=== PATIENT | male | born 1965 | race Caucasian/White ===

== ENCOUNTER 2021-03-09 11:08 | Emergency (ER) | payer MEDICARE, OTHER ==
[2021-03-09 12:07] LABS: HEMOGLOBIN 17.2 gm/dl (14.0-17.5); RED BLOOD COUNT 5.21 M/UL (4.20-5.50); WHITE BLOOD COUNT 15.5 K/UL (4.5-11.0)
[2021-03-09 12:32] LABS: BUN/CREATININE RATIO 16 (0-10)
[2021-03-09] MEDS ORDERED: VIBRAMYCIN 100100 MG PO ×2 (13:49)
== END 2021-03-09 13:57 | disposition home or self-care (01) ==
LOC: ER1 11:08
PROVIDERS: Emergency Medicine
DX: J44.0 Chronic obstructive pulmonary disease with (acute) lower respiratory infection (principal); J18.9 Pneumonia, unspecified organism; I11.9 Hypertensive heart disease without heart failure; F17.210 Nicotine dependence, cigarettes, uncomplicated; Z20.822 Contact with and (suspected) exposure to COVID-19
CPT/HCPCS: 0241U; 71045; 80053; 82550; 82553; 83605; 83880; 84484; 85025; 85379; 85610; 85730; 87040; 93005; 94640; 94664; 96374; 96375; 99285; J0696; J2930

== ENCOUNTER 2021-03-20 10:30 | Observation (INO) | payer MEDICARE, OTHER ==
[~2021-03-20] VITALS: Ht 175.3 cm; Wt 112.7 kg
[~2021-03-20 10:30] MED LIST: VIBRAMYCIN 100100 MG PO
[2021-03-20 12:08] LABS: RED BLOOD COUNT 5.04 M/UL (4.20-5.50); WHITE BLOOD COUNT 15.4 K/UL (4.5-11.0)
[2021-03-20 12:21] LABS: BUN/CREATININE RATIO 15 (0-10)
[2021-03-21 00:56] LABS: HEMOGLOBIN 16.3 gm/dl (14.0-17.5); RED BLOOD COUNT 4.95 M/UL (4.20-5.50); WHITE BLOOD COUNT 12.7 K/UL (4.5-11.0)
[2021-03-21 01:21] LABS: BUN/CREATININE RATIO 12 (0-10)
[2021-03-21] MEDS ORDERED: COZAAR50 MG PO (03:56)
[2021-03-21] MEDS ORDERED: ASPIRIN EC81 MG PO (03:57)
[2021-03-21] MEDS ORDERED: ATORVASTATIN CA80 MG PO (03:57)
[2021-03-21] MEDS ORDERED: CLOPIDOGREL75 MG PO (03:58)
[2021-03-21] MEDS ORDERED: FENOFIBRATE145 MG PO (03:59)
[2021-03-21] MEDS ORDERED: NORVASC5 MG PO (04:00)
[2021-03-21] MEDS ORDERED: OMEPRAZOLE20 MG PO (04:01)
[2021-03-21] MEDS ORDERED: ALBUTEROL1.25 MG/3 INH ×2 (04:04→04:05)
[2021-03-21] MEDS ORDERED: SINGULAIR10 MG PO (04:04)
[2021-03-21] MEDS ORDERED: HYDROCODON-ACE1 EAC2 PO (04:07)
[2021-03-21] MEDS ORDERED: PROAIR DIGIHAL90 MCG INH (04:09)
[2021-03-21] MEDS ORDERED: BREO ELLIPTA 21 EACH INH (04:11)
[2021-03-22 20:22] LABS: ENTEROCOCCUS Not Detected (Negative); KPC-CARBAPENEM-RESISTANCE GENE Not Detected (Negative); vanA/B (VANCOMYCIN RESIST GENE Not Detected (Negative)
[2021-03-22 20:23] LABS: ACINETOBACTER BAUMANNII Not Detected (Negative); CANDIDA ALBICANS Not Detected (Negative); CANDIDA KRUSEI Not Detected (Negative); CANDIDA TROPICALIS Not Detected (Negative); ESCHERICHIA COLI Not Detected (Negative); HAEMOPHILUS INFLUENZAE Not Detected (Negative); KLEBSIELLA OXYTOCA Not Detected (Negative); KLEBSIELLA PNEUMONIAE Not Detected (Negative); PROTEUS Not Detected (Negative); PSEUDOMONAS AERUGINOSA Not Detected (Negative); SERRATIA MARCESANS Not Detected (Negative); STAPHYLOCOCCUS AUREUS Not Detected (Negative); STREP AGALACTIAE (GROUP B) Not Detected (Negative); STREP PYOGENES (GROUP A) Not Detected (Negative); STREPTOCOCCUS Not Detected (Negative)
[2021-03-22 21:43] LABS: STAPHYLOCOCCUS DETECTED (Negative); mecA (METHICILLIN RESIST GENE DETECTED (Negative)
== END 2021-03-21 15:35 | disposition home or self-care (01) ==
LOC: ER1 10:30 → CDU 16:41 → MED SURG 4 18:44
PROVIDERS: Student in an Organized Health Care Education/Training Program; ADMIT Internal Medicine
DX: G93.40 Encephalopathy, unspecified (principal); I25.10 Atherosclerotic heart disease of native coronary artery without angina pectoris; I10 Essential (primary) hypertension; E78.5 Hyperlipidemia, unspecified; J44.9 Chronic obstructive pulmonary disease, unspecified; F17.219 Nicotine dependence, cigarettes, with unspecified nicotine-induced disorders; Z79.891 Long term (current) use of opiate analgesic; Z79.899 Other long term (current) drug therapy; Z79.82 Long term (current) use of aspirin; Z20.822 Contact with and (suspected) exposure to COVID-19; Z95.5 Presence of coronary angioplasty implant and graft
CPT/HCPCS: 0240U; 36415; 36600; 51701; 70450; 70551; 71045; 80053; 80307; 81001; 82140; 82550; 82553; 82803; 83605; 83690; 83735; 83880; 84100; 84484; 85025; 85610; 85652; 85730; 86140; 87040; 87077; 87086; 87150; 87186; 93005; 94664; 94760; 96372; 96374; 96375; 96376; 99285; G0378; G0480; J0692; J0696; J1630; J1650; J3370; J7070; Q9967

== ENCOUNTER → 2021-06-23 | Outpatient (CLI) | payer MEDICARE, OTHER ==
[~2021-06-23] MED LIST changes: +ALBUTEROL1.25 MG/3 INH; +ASPIRIN EC81 MG PO; +ATORVASTATIN CA80 MG PO; +BREO ELLIPTA 21 EACH INH; +CLOPIDOGREL75 MG PO; +COZAAR50 MG PO; +FENOFIBRATE145 MG PO; +HYDROCODON-ACE1 EAC2 PO; +NORVASC5 MG PO; +OMEPRAZOLE20 MG PO; +PROAIR DIGIHAL90 MCG INH; +SINGULAIR10 MG PO
== END ==
LOC: HEART 5 13:01
DX: J44.9 Chronic obstructive pulmonary disease, unspecified (principal); R06.02 Shortness of breath; R94.2 Abnormal results of pulmonary function studies
CPT/HCPCS: 94060; 94729

== ENCOUNTER → 2021-07-12 | Outpatient (CLI) | payer MEDICARE, OTHER | LOC: KOH-I 09:10 | DX: F17.210 Nicotine dependence, cigarettes, uncomplicated (principal); K76.0 Fatty (change of) liver, not elsewhere classified; S22.41XD Multiple fractures of ribs, right side, subsequent encounter for fracture with routine healing | CPT/HCPCS: 71271 ==

== ENCOUNTER 2022-02-06 17:47 | Emergency (ER) | payer MEDICARE, OTHER ==
[2022-02-06 19:17] LABS: HEMOGLOBIN 18.7 gm/dl (14.0-17.5); RED BLOOD COUNT 5.6 M/UL (4.20-5.50); WHITE BLOOD COUNT 15.6 K/UL (4.5-11.0)
[2022-02-06 19:40] LABS: BUN/CREATININE RATIO 12 (0-10)
== END 2022-02-06 23:53 | disposition expired ==
LOC: ER1 17:47
PROVIDERS: Student in an Organized Health Care Education/Training Program
DX: I46.9 Cardiac arrest, cause unspecified (principal); I25.10 Atherosclerotic heart disease of native coronary artery without angina pectoris; I10 Essential (primary) hypertension; J44.9 Chronic obstructive pulmonary disease, unspecified; F17.210 Nicotine dependence, cigarettes, uncomplicated; Z95.5 Presence of coronary angioplasty implant and graft
CPT/HCPCS: 71045; 80053; 82550; 82553; 84484; 85025; 92950; 93005; 99285; J0171; J0282; J0610; J1265; J2001; J2310